=== PATIENT | female | born 1995 | race Caucasian/White ===

== ENCOUNTER 2016-08-06 17:28 | Emergency (ER) | payer BC, OTHER ==
[2016-08-06] MEDS ORDERED: METOCLOPRAMIDE 5 MG/ML 2 ML VIAL IVP STA (18:36)
[2016-08-06] MEDS ORDERED: ACETAMINOPHEN IV (For NPO) 1,000 MG in SALINE 100 100ML.BAG IVPB STA (18:36)
[2016-08-06] MEDS ORDERED: SODIUM CHLORIDE 0.9% 1,000 ML IV STA (18:36)
[2016-08-06 18:44] VITALS: RESP 18
--- NOTE | 2016-08-06 18:44 | ED ---
General Adult HPI - General Chief complaint: Vaginal Bleeding Stated complaint: AND CRAMPING Time Seen by Provider: 08/06/16 18:30 Source: patient, RN notes reviewed Mode of arrival: ambulatory Limitations: no limitations - History of Present Illness Initial comments: Patient is a G3, P2, 20-year-old female who presents emergency room today with chief complaint of vaginal bleeding that began yesterday. Doesn't some spotting. Admits some increased lower abdominal cramping this morning. Describes it as sharp pain located in the right side. She admits that last pressure cycle was 05/24/2016. Patient states she did call her OB Dr. Vu and was recommended to come here to the emergency room for evaluation. Admits to nausea. Patient denies any other complaints or associated symptoms. Patient denies any recent fever, chills, shortness of breath, chest pain, numbness or tingling, dysuria or hematuria, constipation or diarrhea, headaches or visual changes, or any other complaints. - Related Data Previous Rx's Medication Instructions Recorded Cephalexin [Keflex] 500 mg PO Q12HR 10 Days 08/06/16 Allergies Allergy/AdvReac Type Severity Reaction Status Date / Time amoxicillin Allergy Unknown Verified 08/06/16 19:04 Penicillins Allergy Swelling Verified 08/06/16 19:04 Review of Systems ROS Statement: Those systems with pertinent positive or pertinent negative responses have been documented in the HPI. ROS Other: All systems not noted in ROS Statement are negative. Past Medical History Past Medical History: No Reported History History of Any Multi-Drug Resistant Organisms: None Reported Past Surgical History: No Surgical Hx Reported Past Psychological History: No Psychological Hx Reported Smoking Status: Never smoker Past Alcohol Use History: None Reported Past Drug Use History: None Reported General Exam - General Exam Comments Initial Comments: General: The patient is awake and alert, in no distress, and does not appear acutely ill. Eye: Pupils are equal, round and reactive to light, extra-ocular movements are intact. No nystagmus. There is normal conjunctiva bilaterally. No signs of icterus. Ears, nose, mouth and throat: There are moist mucous membranes and no oral lesions. Neck: The neck is supple, there is no tenderness or JVD. Cardiovascular: There is a regular rate and rhythm. No murmur, rub or gallop is appreciated. Respiratory: Lungs are clear to auscultation, respirations are non-labored, breath sounds are equal. No wheezes, stridor, rales, or rhonchi. Gastrointestinal: No fevers then. Normal bowel sounds. Abdomen soft on palpation. Patient does have mild tenderness both left and right lower quadrant. No rebound tenderness. Musculoskeletal: Normal ROM, no tenderness. Strength 5/5. Sensation intact. Pulses equal bilaterally 2+. Neurological: A&O x 3. CN II-XII intact, There are no obvious motor or sensory deficits. Coordination appears grossly intact. Speech is normal. Skin: Skin is warm and dry and no rashes or lesions are noted. Psychiatric: Cooperative, appropriate mood & affect, normal judgment. Limitations: no limitations Course Vital Signs 08/06/16 08/06/16 17:37 18:42 Temperature 98.4 F 97.6 F Pulse Rate 94 83 Respiratory 17 18 Rate Blood Pressure 114/59 119/56 O2 Sat by Pulse 100 99 Oximetry Medical Decision Making - Medical Decision Making Case discussed in detail with attending physician Dr. Kemp. Patient reexamined at this time shows no signs of distress. Patient's labs are been reviewed blood work unremarkable. Patient's urinalysis does show evidence for urinary tract infection with positive nitrate and a large amount of white cells. Patient will be started on antibiotics. Does admit to ALLERGIES penicillin. States swelling. Patient will be given dose of Rocephin here in the emergency room. Patient be discharged home on antibiotics. Rh+. Advised close follow-up with [facility] over the next 2 days. Advised return here to emergency room if any symptoms increase worsen or for any other concerns. - Lab Data Result diagrams: 08/06/16 18:51 08/06/16 18:51 Lab Results 08/06/16 08/06/16 08/06/16 Range/Units 18:51 18:51 18:51 WBC 9.6 (3.8-10.6) k/uL RBC 4.25 (3.80-5.40) m/uL Hgb 13.1 (11.4-16.0) gm/dL Hct 37.9 (34.0-46.0) % MCV 89.2 (80.0-100.0) fL MCH 30.8 (25.0-35.0) pg MCHC 34.5 (31.0-37.0) g/dL RDW 12.9 (11.5-15.5) % Plt Count 194 (150-450) k/uL Neutrophils % 73 % Lymphocytes % 20 % Monocytes % 4 % Eosinophils % 2 % Basophils % 0 % Neutrophils # 7.0 (1.3-7.7) k/uL Lymphocytes # 1.9 (1.0-4.8) k/uL Monocytes # 0.4 (0-1.0) k/uL Eosinophils # 0.2 (0-0.7) k/uL Basophils # 0.0 (0-0.2) k/uL Sodium 136 L (137-145) mmol/L Potassium 3.8 (3.5-5.1) mmol/L Chloride 102 (98-107) mmol/L Carbon Dioxide 20 L (22-30) mmol/L Anion Gap 14 mmol/L BUN 10 (7-17) mg/dL Creatinine 0.53 (0.52-1.04) mg/dL Est GFR (MDRD) Af Amer >60 (>60 ml/min/1.73 sqM) Est GFR (MDRD) Non-Af >60 (>60 ml/min/1.73 sqM) Glucose 86 (74-99) mg/dL Calcium 9.2 (8.4-10.2) mg/dL Total Bilirubin 0.8 (0.2-1.3) mg/dL AST 16 (14-36) U/L ALT 29 (9-52) U/L Alkaline Phosphatase 64 (38-126) U/L Total Protein 7.4 (6.3-8.2) g/dL Albumin 4.2 (3.5-5.0) g/dL Urine Color Urine Appearance (Clear) Urine pH (5.0-8.0) Ur Specific Henderson (1.001-1.035) Urine Protein (Negative) Urine Glucose (UA) (Negative) Urine Ketones (Negative) Urine Blood (Negative) Urine Nitrate (Negative) Urine Bilirubin (Negative) Urine Urobilinogen (<2.0) mg/dL Ur Leukocyte Esterase (Negative) Urine RBC (0-5) /hpf Urine WBC (0-5) /hpf Urine WBC Clumps (None) /hpf Ur Squamous Epith Cells (0-4) /hpf Urine Bacteria (None) /hpf Urine Mucus (None) /hpf Urine Yeast (Budding) (None) /hpf Blood Type A Positive Blood Type Recheck No 08/06/16 Range/Units 18:51 WBC (3.8-10.6) k/uL RBC (3.80-5.40) m/uL Hgb (11.4-16.0) gm/dL Hct (34.0-46.0) % MCV (80.0-100.0) fL MCH (25.0-35.0) pg MCHC (31.0-37.0) g/dL RDW (11.5-15.5) % Plt Count (150-450) k/uL Neutrophils % % Lymphocytes % % Monocytes % % Eosinophils % % Basophils % % Neutrophils # (1.3-7.7) k/uL Lymphocytes # (1.0-4.8) k/uL Monocytes # (0-1.0) k/uL Eosinophils # (0-0.7) k/uL Basophils # (0-0.2) k/uL Sodium (137-145) mmol/L Potassium (3.5-5.1) mmol/L Chloride (98-107) mmol/L Carbon Dioxide (22-30) mmol/L Anion Gap mmol/L BUN (7-17) mg/dL Creatinine (0.52-1.04) mg/dL Est GFR (MDRD) Af Amer (>60 ml/min/1.73 sqM) Est GFR (MDRD) Non-Af (>60 ml/min/1.73 sqM) Glucose (74-99) mg/dL Calcium (8.4-10.2) mg/dL Total Bilirubin (0.2-1.3) mg/dL AST (14-36) U/L ALT (9-52) U/L Alkaline Phosphatase (38-126) U/L Total Protein (6.3-8.2) g/dL Albumin (3.5-5.0) g/dL Urine Color Yellow Urine Appearance Cloudy H (Clear) Urine pH 6.5 (5.0-8.0) Ur Specific Henderson 1.016 (1.001-1.035) Urine Protein 2+ H (Negative) Urine Glucose (UA) Negative (Negative) Urine Ketones Negative (Negative) Urine Blood Moderate H (Negative) Urine Nitrate Positive H (Negative) Urine Bilirubin Negative (Negative) Urine Urobilinogen <2.0 (<2.0) mg/dL Ur Leukocyte Esterase Large H (Negative) Urine RBC 15 H (0-5) /hpf Urine WBC >182 H (0-5) /hpf Urine WBC Clumps Many H (None) /hpf Ur Squamous Epith Cells 5 H (0-4) /hpf Urine Bacteria Many H (None) /hpf Urine Mucus Few H (None) /hpf Urine Yeast (Budding) Occasional H (None) /hpf Blood Type Blood Type Recheck Disposition Clinical Impression: UTI (urinary tract infection), Bleeding in early Disposition: HOME SELF-CARE Condition: Good Instructions: Urinary Tract Infection in Women (ED) Additional Instructions: Please follow-up the [facility] over the next 2 days. Please use antibiotic as prescribed. Please return to emergency room symptoms increase or worsen or for any other concerns Prescriptions: Cephalexin [Keflex] 500 mg PO Q12HR 10 Days Referrals: None,Stated [Primary Care Provider] - 1-2 days Dinorah Vu MD [STAFF PHYSICIAN] - 1-2 days Time of Disposition: 19:46
[2016-08-06 19:08] LABS: Basophils % (A) 0 %; CH 31.6; CHCM 35.6; Eosinophils # (A) 0.2 k/uL (0-0.7); Eosinophils % (A) 2 %; HCT 37.9 % (34.0-46.0); HDW 2.66; HGB 13.1 gm/dL (11.4-16.0); Luc # (Auto) 0.12; Luc % (Auto) 1; Lymphocytes # (A) 1.9 k/uL (1.0-4.8); Lymphocytes % (A) 20 %; MCH 30.8 pg (25.0-35.0); MCHC 34.5 g/dL (31.0-37.0); MCV 89.2 fL (80.0-100.0); Mean Platelet Volume 6.9; Monocytes # (A) 0.4 k/uL (0-1.0); Monocytes % (A) 4 %; Neutrophils % (A) 73 %; RBC 4.25 m/uL (3.80-5.40); RDW 12.9 % (11.5-15.5); WBC 9.6 k/uL (3.8-10.6); WBC (Perox) 9.67
[2016-08-06 19:17] LABS: Appearance,Urine Cloudy (Clear); Bacteria,Urine Many /hpf; Bilirubin,Urine Negative (Negative); Glucose,Urine (UA) Negative (Negative); Ketones,Urine Negative (Negative); Leukocyte Esterase,Urine Large (Negative); Mucus,Urine Few /hpf; Nitrite,Urine Positive (Negative); PH, Urine 6.5 (5.0-8.0); Particle Count 84865; Protein,Urine 2+ (Negative); RBC,Urine 15 /hpf (0-5); Specific Gravity,Urine 1.016 (1.001-1.035); Squamous Epithelial Cell,Urine 5 /hpf (0-4); UA Billing (MACRO vs. MICRO) MICRO; Urobilinogen,Urine <2.0 mg/dL (<2.0); WBC,Urine >182 /hpf (0-5)
[2016-08-06 19:18] LABS: ALT 29 U/L (9-52); AST 16 U/L (14-36); Alkaline Phosphatase 64 U/L (38-126); Anion Gap 14 mmol/L; Blood Urea Nitrogen 10 mg/dL (7-17); Calcium 9.2 mg/dL (8.4-10.2); Carbon Dioxide 20 mmol/L (22-30); Chloride 102 mmol/L (98-107); Glucose 86 mg/dL (74-99); Non-African American GFR(MDRD) >60 (>60 ml/min/1.73 sqM); Potassium 3.8 mmol/L (3.5-5.1); Sodium 136 mmol/L (137-145); Total Bilirubin 0.8 mg/dL (0.2-1.3); Total Protein 7.4 g/dL (6.3-8.2)
--- NOTE | 2016-08-06 19:35 | US ---
EXAMINATION TYPE: US OB <=14 wks transvag DATE OF EXAM: 08/06/2016 7:22 PM COMPARISON: No previous CLINICAL HISTORY: Pain. Cramping x 2 days, spotting x 2 days EXAM PERFORMED: Transabdominal (TA) EXAM MEASUREMENTS: GESTATIONAL AGE / DATING Physician Established: Not established yet Dates by LMP: (10 weeks/4 days) EDC: 02/28/2017 Dates by First Scan: No previous Dates by Current Scan for: (11 weeks/3 days) EDC: 02/22/2017 MATERNAL ANATOMY Uterus: 11.9 x 9.2 x 10.5cm Right Ovary: 3.1 x 2.0 x 2.2cm Left Ovary: 2.9 x 1.6 x 1.6cm Post CDS / Adnexa: 1.1 x 1.0 x 1.3cm hypoechoic cystic area within right adnexa adjacent to right ove ry - ? ovarian cyst vs. other etiology Presence of free fluid: no Presence of corpus luteal cyst: yes - 1.8 x 1.4 x 1.5cm - left ovary Presence of subchorionic bleed: no GESTATION / SURVEY CRL: 4.6cm (11 weeks/3 days) Yolk Sac (normal less than 6mm): 4.9mm Heart Rate: 171 bpm Rhythm: Normal IUP: Viable IUP Nuchal Translucency 10-14wks (normal less than 3mm): 1.3mm Date of LMP: 05/24/16 Beta HcG (if available): Not available at time of exam TECHNOLOGIST IMPRESSION: Viable single IUP measuring 11 weeks 3 days with a heart rate of 171bpm and an estimated delivery date of 02/22/2017, 1.8cm corpus luteum - left ovary, right adnexa: 1.3cm hypo echoic cystic area adjacent to right ovary IMPRESSION: The ultrasound gestational age is 11 weeks 3 days. There is no sign of a complicating process.
[2016-08-06] MEDS ORDERED: cefTRIAXone 2,000 MG in SODIUM CHLORIDE 0.9% 100 ML IVPB STA (19:45)
[2016-08-06 20:02] LABS: HCG,Quantitative Serum 93496.2 mIU/mL
[2016-08-06 21:31] VITALS: BP 101/59; PULSE 84; TEMP 97.7
== END 2016-08-06 21:31 | disposition home or self-care (01) ==
LOC: EC 17:28
DX: O23.41 Unspecified infection of urinary tract in pregnancy, first trimester (principal); O46.91 Antepartum hemorrhage, unspecified, first trimester; Z88.0 Allergy status to penicillin; Z3A.11 11 weeks gestation of pregnancy
CPT/HCPCS: 36415; 86900; 86901; 80053; 85025; 81001; 84702; 87086; 87077; 87186; 76813; 76801; 99284; 96365; 96375 ×2; J2765; J0696; J0131

== ENCOUNTER 2016-12-06 13:58 | Outpatient (CLI) | payer BC ==
[2016-12-06 14:10] VITALS: BP 103/56; PULSE 88; RESP 16; TEMP 96.9
== END 2016-12-06 15:05 | disposition home or self-care (01) ==
LOC: FBPOP 13:58
PROVIDERS: ATTEND Obstetrics & Gynecology
DX: O26.893 Other specified pregnancy related conditions, third trimester (principal); Z3A.28 28 weeks gestation of pregnancy
CPT/HCPCS: 59025; 99213

== ENCOUNTER 2017-02-09 10:53 | Outpatient (CLI) | payer BC ==
[2017-02-09 11:34] VITALS: BP 110/60; PULSE 94; RESP 16; TEMP 98.1
[2017-02-09 12:08] LABS: Appearance,Urine Cloudy (Clear); Bilirubin,Urine Negative (Negative); Glucose,Urine (UA) Negative (Negative); Ketones,Urine Trace (Negative); Leukocyte Esterase,Urine Large (Negative); Mucus,Urine Moderate /hpf; Nitrite,Urine Negative (Negative); PH, Urine 6.5 (5.0-8.0); Particle Count 7727; Protein,Urine Trace (Negative); RBC,Urine 2 /hpf (0-5); Specific Gravity,Urine 1.019 (1.001-1.035); Squamous Epithelial Cell,Urine 2 /hpf (0-4); UA Billing (MACRO vs. MICRO) MICRO; WBC,Urine 12 /hpf (0-5)
--- NOTE | 2017-04-17 10:51 | P.MSEPDOC ---
Presenting Problems - Arrival Data Date of Arrival on Unit: 02/09/17 Time of Arrival on Unit: 10:56 Mode of Transport: Ambulatory - Complaint OB-Reason for Admission/Chief Complaint: Possible Onset of Labor, Rule Out SROM Medical History - Information : 3 Para: 2 Term: 2 : 0 Abortions: Spontaneous or Elective: 0 Number of Living Children: 2 - Gestational Age Gestational Age by CAMILA (wks/days): 38 Weeks and 1 Days Review of Systems - Review of Systems Constitutional: No problems Breast: No problems ENT: No problems Cardiovascular: No problems Respiratory: No problems Gastrointestinal: No problems Genitourinary: No problems, Urgency Musculoskeletal: No problems Neurological: No problems Skin: No problems Vital Signs - Temperature Temperature: 98.1 F Temperature Source: Oral - Pulse Right Pulse Rate: 94 Pulse Assessment Method: Automatic Cuff - Respirations Respiratory Rate: 16 Oxygen Delivery Method: Room Air O2 Sat by Pulse Oximetry: 98 - Blood Pressure Right Arm Blood Pressure: 110/60 Blood Pressure Mean: 76 Blood Pressure Source: Automatic Cuff Medical Screen Scoring (Pre) - Cervical Exam Dilation: 1-3 cm = 1 Membranes: Intact - Uterine Contractions Frequency: > 5 minutes apart = 1 Duration: > 40 seconds = 2 Intensity: N/A - Assessment Baseline FHR: 120 Heart Rate - NICHD Category: Category I (Normal) = 0 - Total Score Total Score (Pre): 4 - Level of Risk Level of Risk: Low (0-5) Physician Notification (Post) - Physician Notified Physician Notified Date: 02/09/17 Physician Notified Time: 12:54 Physician/Practitioner Notified:: Karthik Spoke With: Karthik New Order Received: Yes - Notification Comment Comment: Prescription called in to [facility] for Macrobid, follow up at next scheduled appt on 02/17 Disposition - Disposition OB Disposition: Discharge to home, Written follow up instructions reviewed Discharge Date: 02/09/17 Discharge Time: 12:56 I agree with the RN Medical Screening Exam: Yes Risk & Benefit of care provided described in d/c instruction: Yes Diagnosis: ONSET LABOR 37-39 WEEKS, W DEL BY (PLANNED) SECTION
== END 2017-02-09 12:56 | disposition home or self-care (01) ==
LOC: FBPOP 10:53
PROVIDERS: ATTEND Obstetrics & Gynecology
DX: O75.82 Onset (spontaneous) of labor after 37 completed weeks of gestation but before 39 completed weeks gestation, with delivery by (planned) cesarean section (principal); Z3A.38 38 weeks gestation of pregnancy
CPT/HCPCS: 59025; 81001; 84112; 99213

== ENCOUNTER 2017-02-11 03:15 | Outpatient (CLI) | payer BC ==
[2017-02-11 03:29] VITALS: BP 117/61; PULSE 93; RESP 16; TEMP 96.6
--- NOTE | 2017-04-16 12:14 | P.MSEPDOC ---
Presenting Problems - Arrival Data Date of Arrival on Unit: 02/11/17 Time of Arrival on Unit: 03:20 Mode of Transport: Wheelchair - Complaint OB-Reason for Admission/Chief Complaint: Possible Onset of Labor Comment: Contractions that started around 0100 ranging from 3-4 minutes Medical History - Information : 3 Para: 2 Term: 2 : 0 Abortions: Spontaneous or Elective: 0 Number of Living Children: 2 - Gestational Age Gestational Age by CAMILA (wks/days): 38 Weeks and 3 Days Review of Systems - Review of Systems Constitutional: No problems Breast: No problems ENT: No problems Cardiovascular: No problems Respiratory: No problems Gastrointestinal: No problems Genitourinary: No problems Musculoskeletal: No problems Neurological: No problems Skin: No problems Vital Signs - Temperature Temperature: 96.6 F Temperature Source: Temporal Artery Scan - Pulse Pulse Oximetery Pulse Rate: 93 Pulse Assessment Method: Pulse Oximetry - Respirations Respiratory Rate: 16 Oxygen Delivery Method: Room Air - Blood Pressure Sitting Blood Pressure: 117/61 Blood Pressure Mean: 79 Blood Pressure Source: Automatic Cuff Medical Screen Scoring (Pre) - Cervical Exam Dilation: 1-3 cm = 1 Membranes: Intact - Uterine Contractions Frequency: N/A Duration: > 40 seconds = 2 Intensity: N/A - Maternal Vital Signs Maternal Temperature: N/A Maternal Blood Pressure: N/A Signs of Preeclampsia: N/A Maternal Respirations: N/A - Maternal Trauma Maternal Trauma: N/A - Assessment Baseline FHR: 145 Heart Rate - NICHD Category: Category I (Normal) = 0 NST: Reactive Position: N/A Station: N/A - Total Score Total Score (Pre): 3 - Level of Risk Level of Risk: Low (0-5) Disposition - Disposition Discharge Date: 02/11/17 Discharge Time: 04:39 I agree with the RN Medical Screening Exam: Yes Risk & Benefit of care provided described in d/c instruction: Yes Diagnosis: FALSE LABOR AT OR AFTER 37 COMPLETED WEEKS OF GESTATION
== END 2017-02-11 04:39 | disposition home or self-care (01) ==
LOC: FBPOP 03:15
PROVIDERS: ATTEND Obstetrics & Gynecology Obstetrics
DX: O47.1 False labor at or after 37 completed weeks of gestation (principal); Z3A.38 38 weeks gestation of pregnancy
CPT/HCPCS: 59025; 99213

== ENCOUNTER 2017-02-15 05:57 | Inpatient (IN) | payer BC ==
[2017-02-15] MEDS ORDERED: OXYTOCIN 10 UNIT/ML 1 ML VIAL IM PRN (06:16)
[2017-02-15] MEDS ORDERED: METHYLERGONOVINE 0.2 MG/ML 1 ML AMP IM PRN (06:16)
[2017-02-15] MEDS ORDERED: TERBUTALINE 1 MG/ML VIAL SQ PRN (06:16)
[2017-02-15] MEDS ORDERED: LIDOCAINE 1% (PF) 10 MG/ML (30 ML SDV) SQ PRN (06:16)
[2017-02-15] MEDS ORDERED: CARBOPROST TROMETHAMINE 250 MCG/ML 1 ML AMP IM PRN (06:16)
[2017-02-15 06:27] LABS: Basophils % (A) 0 %; CH 30.2; CHCM 34.2; Eosinophils # (A) 0.1 k/uL (0-0.7); Eosinophils % (A) 1 %; HDW 3.33; HGB 11.2 gm/dL (11.4-16.0); Luc # (Auto) 0.18; Luc % (Auto) 2; Lymphocytes # (A) 1.6 k/uL (1.0-4.8); Lymphocytes % (A) 20 %; MCH 30.2 pg (25.0-35.0); MCHC 33.9 g/dL (31.0-37.0); MCV 88.8 fL (80.0-100.0); Mean Platelet Volume 7.6; Monocytes # (A) 0.5 k/uL (0-1.0); Monocytes % (A) 6 %; Neutrophils # (A) 5.5 k/uL (1.3-7.7); Neutrophils % (A) 71 %; RBC 3.71 m/uL (3.80-5.40); RDW 13.5 % (11.5-15.5); WBC 7.8 k/uL (3.8-10.6); WBC (Perox) 8.31
[2017-02-15] MEDS ORDERED: OXYTOCIN 20 UNITS/1000 ML NS 1,000 ML IV SCH (06:30)
[2017-02-15] MEDS: LACTATED RINGERS 1,000 ML IV SCH ×2 (06:53→21:48)
[2017-02-15 07:23] VITALS: BMI 26.0
--- NOTE | 2017-02-15 07:25 | P.HPOB ---
History of Present Illness H&P Date: 02/15/17 This is a 21-year-old white female 3 para 06/20/2001 EDC 02/22/2017 at 39 weeks gestation. Patient presents today for induction for increasing maternal discomfort and favorable Navarro score. Fetus has been active throughout the . She has been having irregular but strong uterine contractions over the past several weeks. She denies fluid leakage or vaginal bleeding. Past medical history is significant for childhood asthma, on no meds currently. Past surgical history negative. Current medications reed vitamins daily. ALLERGIES include penicillin to which reports swelling. Family history significant for hypertension. Social history patient is single, she is employed, she denies tobacco alcohol or drug use. history blood type A+, rubella status immune. VDRL testing, hepatitis B surface antigen, HIV testing, urine culture, group B strep cultures all negative. One-hour Glucola within normal limits. On exam this is a pleasant young female, 5 foot 3 inches, 147 pounds, vital signs are stable and she is afebrile. The general physical exam is within normal limits. The extremities reveal no edema. The cervix is 3 cm dilated, 60 % effaced, -2 station, vertex presentation, soft and anterior. heart rate is consistent with reactive NST. Artificial amniorrhexis reveals clear fluid. There are irregular uterine contractions noted. Impression: 39 week intrauterine , here for induction of labor for increasing maternal discomfort. All signs at this point reassuring. Plan: Close maternal and surveillance. Oxytocin per hospital protocol. Analgesic options reviewed with the patient. Anticipate normal spontaneous vaginal delivery. Review of Systems Negative except as in HPI Past Medical History Past Medical History: No Reported History Additional Past Medical History / Comment(s): Childhood asthma History of Any Multi-Drug Resistant Organisms: None Reported Past Surgical History: No Surgical Hx Reported Smoking Status: Never smoker Medications and Allergies Home Medications Medication Instructions Recorded Confirmed Type No Known Home Medications [No 02/09/17 02/11/17 History Known Home Medications] Allergies Allergy/AdvReac Type Severity Reaction Status Date / Time amoxicillin Allergy Swelling Verified 02/11/17 03:22 Penicillins Allergy Swelling Verified 02/11/17 03:22 Exam - Vital Signs Vital signs: Intake and Output 02/14/17 02/15/17 02/15/17 22:59 06:59 14:59 Other: Weight 66.678 kg The dictation under HPI, please Results Result Diagrams: 02/15/17 06:20 Abnormal Lab Results - Last 24 Hours (Table) 02/15/17 Range/Units 06:20 RBC 3.71 L (3.80-5.40) m/uL Hgb 11.2 L (11.4-16.0) gm/dL Hct 33.0 L (34.0-46.0) % Assessment and Plan Plan: Close maternal and surveillance. Oxytocin per hospital protocol. Anticipate normal spontaneous vaginal delivery. Time with Patient: Less than 30
[2017-02-15] MEDS ORDERED: SODIUM CHLORIDE 0.9% 100 ML BAG ONE (09:57)
[2017-02-15] MEDS ORDERED: fentaNYL (PF) 50 MCG/ML 5 ML AMP ONE (09:57)
[2017-02-15] MEDS ORDERED: BUPIVACAINE (PF) 0.25% 30 ML VIAL ONE (09:57)
[2017-02-15] MEDS ORDERED: BUPIVACAINE (PF) 0.25% 25 ML, fentaNYL (PF) 200 MCG in SODIUM CHLORIDE 0.9% 71 ML EPIDURAL ONE (10:32)
[2017-02-15] MEDS ORDERED: SIMETHICONE 80 MG CHEWABLE PO PRN (12:20)
[2017-02-15] MEDS ORDERED: BENZOCAINE/MENTHOL SPRAY 1 GM/SPRAY AEROSOL TOPICAL PRN (12:20)
[2017-02-15] MEDS ORDERED: HYDROCORTISONE 2.5% RECTAL CREAM 30 GM TUBE RECTAL PRN (12:20)
[2017-02-15] MEDS ORDERED: Acetaminophen-Codeine 300-30mg TAB PO PRN (12:20)
[2017-02-15] MEDS ORDERED: LANOLIN CREAM 5 GM TUBE TOPICAL PRN (12:20)
[2017-02-15] MEDS ORDERED: diphenhydrAMINE ELIXIR 25 MG/10 ML CUP PO PRN (12:20)
[2017-02-15] MEDS ORDERED: diphenhydrAMINE 50 MG CAP PO PRN (12:20)
[2017-02-15] MEDS ORDERED: diphenhydrAMINE 50 MG/ML 1 ML VIAL IVP PRN ×2 (12:20)
[2017-02-15] MEDS ORDERED: diphenhydrAMINE 25 MG CAP PO PRN (12:20)
[2017-02-15] MEDS ORDERED: ACETAMINOPHEN TAB 325 MG TAB PO PRN (12:20)
[2017-02-15] MEDS ORDERED: WITCH HAZEL 1 EACH MED..PAD TOPICAL PRN (12:20)
[2017-02-15] MEDS ORDERED: ZOLPIDEM 5 MG TAB PO PRN (12:20)
--- NOTE | 2017-02-15 12:20 | P.PROBDLV ---
Vaginal Delivery Note - . Vaginal Delivery Note: This is a 21-year-old white female 3 para [id number] EDC 02/22/2017 at 39 weeks gestation. Patient presented for induction this morning with favorable cervix with increasing maternal discomfort. was essentially unremarkable, group B strep cultures negative, blood type A+, rubella status immune. Please see my dictated history and physical for details. Artificial amniorrhexis revealed clear fluid. Oxytocin was started and titrated per hospital protocol. heart rate was reassuring and reactive throughout the first and second stages of labor. Epidural was requested, and this was placed without difficulty per the anesthesia staff. Patient progressed well through labor and became completely dilated at 1154 hours. Perineal body was prepped and draped in usual sterile fashion. ' s head delivered occiput anterior and the restituted accordingly. There was no nuchal cord noted. The left or anterior shoulder was delivered easily from underneath the pubic symphysis and the oropharynx, nasopharynx, and external nares were bulb suctioned on the perineal body. Patient was officially delivered of a liveborn male at 12:00. Umbilical cord was doubly clamped and ligated, he was handed to waiting nurses for evaluation where scores of 9 and 9 at one and 5 minutes respectively were given. Infant weighed 7 lbs. 0 oz. or 3185 g. The placenta delivered spontaneously, it was inspected and noted to be intact with trivascular cord at 1209 hrs. At this time the perineal body was redraped. Inspection of the cervix, vagina, perineum, periurethral, and perirectal areas revealed no lacerations and no defects. Uterus is firm and in the midline, symmetric and 18 week size upon completion of delivery. All sponge needle and enhancement counts are correct at the end of the procedure. Patient is requesting circumcision for her infant son.
[2017-02-15] MEDS ORDERED: SENNOSIDES-DOCUSATE SODIUM 1 EACH TAB PO SCH (20:00)
[2017-02-16] MEDS: IBUPROFEN 600 MG TAB PO PRN ×2 (04:50→09:30)
--- NOTE | 2017-02-16 07:38 | P.DS ---
Providers Date of admission: 02/15/17 05:57 Expected date of discharge: 02/16/17 Attending physician: Dinorah Vu Primary care physician: Stated None Hospital Course: This is a 21-year-old white female 3 para 2002 EDC 02/22/2017 at 39 weeks gestation. Patient presented for induction for increasing maternal discomfort and favorable multiparous cervix. was essentially unremarkable, blood type A+, rubella status immune, group B strep cultures negative. Please see my dictated history and physical for details. Patient was admitted, artificial amniorrhexis revealed clear fluid, oxytocin was started and titrated per hospital protocol. Epidural was placed per her request. She went on to deliver a liveborn male with scores of 9 and 9 at one and 5 minutes respectively. Infant weighed 3185 g or 7 lbs. 0 oz. There were no perineal lacerations noted. Please see dictated delivery note for details. Today the patient is doing well. She is voiding, and dilating and passing flatus without difficulty. Vital signs are stable and she is afebrile. Fundus is firm and in the midline, symmetric and 18 week size. Extremities are negative for edema. Breasts are not engorged. Circumcision is to be performed on her . She is being discharged home today in very good condition. She will follow-up in the office with me in 6 weeks. I have reminded her no intercourse, tampons or douching. She will use [id number] Advil products as needed for pain. She will call with any fevers shakes or chills, foul smelling or copious lochia , with the passage of large blood clots, with any pain not alleviated by over- the-counter products, or indeed with any concerns. We have talked about methods of contraception and we will discuss this further in the office in 6 weeks. Patient Condition at Discharge: Good Plan - Discharge Summary New Discharge Prescriptions: No Action No Known Home Medications [No Known Home Medications] Discharge Medication List No Known Home Medications [No Known Home Medications] 02/09/17 [History] Follow up Appointment(s)/Referral(s): Dinorah Vu MD [STAFF PHYSICIAN] - 6 Weeks Discharge Disposition: HOME SELF-CARE
[2017-02-16 09:43] VITALS: BP 92/57; PULSE 79; RESP 16; TEMP 97.8
== END 2017-02-16 14:30 | disposition home or self-care (01) | DRG 775 ==
LOC: 4FBP 05:57
PROVIDERS: ADMIT Obstetrics & Gynecology; ATTEND Obstetrics & Gynecology
PROC: 10E0XZZ Delivery of Products of Conception, External Approach (ICD-10-PCS; principal; 2017-02-15)
PROC: 3E033VJ Introduction of Other Hormone into Peripheral Vein, Percutaneous Approach (ICD-10-PCS; 2017-02-15)
PROC: 10907ZC Drainage of Amniotic Fluid, Therapeutic from Products of Conception, Via Natural or Artificial Opening (ICD-10-PCS; 2017-02-15)
PROC: 00HU33Z Insertion of Infusion Device into Spinal Canal, Percutaneous Approach (ICD-10-PCS; 2017-02-15)
PROC: 3E0R3CZ (ICD-10-PCS; 2017-02-15)
DX: O80 Encounter for full-term uncomplicated delivery (principal); Z37.0 Single live birth; Z3A.39 39 weeks gestation of pregnancy; Z87.09 Personal history of other diseases of the respiratory system; Z88.0 Allergy status to penicillin
CPT/HCPCS: 85025; 88307

== ENCOUNTER 2019-05-05 15:43 | Emergency (ER) | payer BC, OTHER ==
[2019-05-05] MEDS ORDERED: DIPH,PERTUS(ACELL)TETVAC-LF 0.5 ML VIAL IM ONE (16:07)
[2019-05-05] MEDS ORDERED: LIDOCAINE 1% INJ 10MG/ML (20 ML MDV) SQ ONE (16:07)
--- NOTE | 2019-05-05 16:19 | ED ---
General Adult HPI - General Chief complaint: Wound/Laceration Stated complaint: finger lac Time Seen by Provider: 05/05/19 15:55 Source: patient, RN notes reviewed Mode of arrival: ambulatory Limitations: no limitations - History of Present Illness Initial comments: 23-year-old female presents to the emergency department for chief complaint of laceration to the right fourth digit. Patient states that she a toolbox door closed on her right fourth digit and she pulled her finger causing a laceration to the finger pad. Patient is not up-to-date on tetanus.Patient has no other complaints at this time including shortness of breath, chest pain, abdominal pain, nausea or vomiting, headache, or visual changes. - Related Data Home Medications Medication Instructions Recorded Confirmed No Known Home Medications 02/09/17 02/11/17 Allergies Allergy/AdvReac Type Severity Reaction Status Date / Time amoxicillin Allergy Swelling Verified 02/11/17 03:22 Penicillins Allergy Swelling Verified 02/11/17 03:22 Review of Systems ROS Statement: Those systems with pertinent positive or pertinent negative responses have been documented in the HPI. ROS Other: All systems not noted in ROS Statement are negative. Past Medical History Past Medical History: No Reported History Additional Past Medical History / Comment(s): Childhood asthma History of Any Multi-Drug Resistant Organisms: None Reported Past Surgical History: No Surgical Hx Reported Past Anesthesia/Blood Transfusion Reactions: No Reported Reaction Past Psychological History: No Psychological Hx Reported Smoking Status: Former smoker Past Alcohol Use History: None Reported Past Drug Use History: None Reported - Past Family History Father Family Medical History: Hypertension General Exam Limitations: no limitations General appearance: alert, in no apparent distress Head exam: Present: atraumatic, normocephalic, normal inspection Eye exam: Present: normal appearance, PERRL, EOMI. Absent: scleral icterus, conjunctival injection, periorbital swelling ENT exam: Present: normal exam, mucous membranes moist Neck exam: Present: normal inspection, full ROM. Absent: tenderness, meningis mus, lymphadenopathy Respiratory exam: Present: normal lung sounds bilaterally. Absent: respiratory distress, wheezes, rales, rhonchi, stridor Cardiovascular Exam: Present: regular rate, normal rhythm, normal heart sounds. Absent: systolic murmur, diastolic murmur, rubs, gallop, clicks Extremities exam: Present: full ROM (Full range motion of the right fourth digit), normal capillary refill (Capillary refill less than 2 seconds in the right fourth digit), other (Patient has a small 1 cm laceration noted to the finger pad of the right fourth digit. This is superficial in nature. No concern for underlying fracture or muscular/tendon injury.) Course Vital Signs 05/05/19 15:45 Temperature 98.1 F Pulse Rate 112 H Respiratory 18 Rate Blood Pressure 124/60 O2 Sat by Pulse 98 Oximetry Procedures - Laceration Laceration #1 Consent Obtained: verbal consent Indication: laceration Site: hand Size (cm): 1 Description: linear Depth: simple, single layer Anesthetic Used: lidocaine 1% Anesthesia Technique: local infiltration Amount (mls): 1 Pre-repair: wound explored, irrigated extensively (saline pressur eirrigation after soaking in sterile water) Type of Sutures: other (ethilon) Size of Sutures: 5-0 Number of Sutures: 3 Technique: simple, interrupted Patient Tolerated Procedure: well, no complications Medical Decision Making - Medical Decision Making She presents for superficial laceration. However as this is on the fingertip glue would not suffice as it would likely degrade. Therefore 3 sutures were applied after wound was thoroughly cleaned. I am not concerned for underlying fracture given mechanism of injury. Discussed return precautions including those for infection. Discussed return in 7-10 days for removal. Patient will return if she has any other worsening symptoms. Disposition Clinical Impression: Laceration Disposition: HOME SELF-CARE Condition: Good Instructions (If sedation given, give patient instructions): Laceration (ED), Care For Your Stitches (ED) Additional Instructions: Keep liam clean. Do not submerge in water for 24-48 hours. Monitor for signs infection such as spreading or streaking redness, drainage, or fever and return if these occur. Return in 7-10 days for suture removal. Otherwise follow-up with primary care in the next couple days for a recheck. Is patient prescribed a controlled substance at d/c from ED?: No Referrals: Mitra White MD [REFERRING] - 1-2 days Time of Disposition: 16:38
[2019-05-05 16:57] VITALS: BP 113/73; PULSE 96; RESP 19; TEMP 98.4
== END 2019-05-05 16:47 | disposition home or self-care (01) ==
LOC: EC 15:43
DX: S61.214A Laceration without foreign body of right ring finger without damage to nail, initial encounter (principal); Z87.891 Personal history of nicotine dependence; Z88.0 Allergy status to penicillin; Z23 Encounter for immunization; W23.0XXA Caught, crushed, jammed, or pinched between moving objects, initial encounter
CPT/HCPCS: 90715; 99282; 12001; 90471; J2001

== ENCOUNTER 2020-12-11 08:02 | Emergency (ER) | payer OTHER ==
[2020-12-11 08:07] VITALS: RESP 18; TEMP 97.8
[2020-12-11] MEDS ORDERED: METOCLOPRAMIDE 5 MG/ML 2 ML VIAL IVP STA (08:10)
[2020-12-11] MEDS ORDERED: SODIUM CHLORIDE 0.9% 2,000 ML IV STA (08:10)
--- NOTE | 2020-12-11 08:13 | ED ---
Nausea/Vomiting/Diarrhea HPI - General Chief complaint: Nausea/Vomiting/Diarrhea Stated complaint: Nausea & vomiting, 9 weeks Time Seen by Provider: 12/11/20 08:04 Source: patient, RN notes reviewed Mode of arrival: ambulatory Limitations: no limitations - History of Present Illness Initial comments: This a 25-year-old female presents emergency Department chief complaint of nausea vomiting. Patient is A0 currently 9 weeks with nausea vomiting. Patient states she's had increased nausea vomiting last several weeks. Patient first [facility] appointment was scheduled for today. Patient had no prior visits. Patient denies any dysuria hematuria she states her abdomen is sore from vomiting denies any vaginal bleeding or vaginal discharge. Patient denies any fevers or chills. Patient did have some nausea vomiting and her oth er pregnancies this seems recently worsened usual. - Related Data Previous Rx's Medication Instructions Recorded Cephalexin [Keflex] 500 mg PO Q8HR #21 cap 12/11/20 Ondansetron Odt [Zofran Odt] 4 mg PO Q8HR PRN #14 tab 12/11/20 Allergies Allergy/AdvReac Type Severity Reaction Status Date / Time amoxicillin Allergy Swelling Verified 12/11/20 09:07 Penicillins Allergy Swelling Verified 12/11/20 09:07 Review of Systems ROS Statement: Those systems with pertinent positive or pertinent negative responses have been documented in the HPI. ROS Other: All systems not noted in ROS Statement are negative. Past Medical History Past Medical History: No Reported History Additional Past Medical History / Comment(s): Childhood asthma History of Any Multi-Drug Resistant Organisms: None Reported Past Surgical History: No Surgical Hx Reported Past Anesthesia/Blood Transfusion Reactions: No Reported Reaction Past Psychological History: No Psychological Hx Reported Smoking Status: Never smoker Past Alcohol Use History: None Reported Past Drug Use History: None Reported - Past Family History Father Family Medical History: Hypertension General Exam Limitations: no limitations General appearance: alert, in no apparent distress Head exam: Present: atraumatic, normocephalic, normal inspection Respiratory exam: Present: normal lung sounds bilaterally. Absent: respiratory distress, wheezes, rales, rhonchi, stridor Cardiovascular Exam: Present: regular rate, normal rhythm, normal heart sounds. Absent: systolic murmur, diastolic murmur, rubs, gallop, clicks GI/Abdominal exam: Present: soft, normal bowel sounds. Absent: distended, tenderness, guarding, rebound, rigid Back exam: Absent: CVA tenderness (R), CVA tenderness (L) Neurological exam: Present: alert Skin exam: Present: warm, dry, intact, normal color. Absent: rash Course Vital Signs 12/11/20 08:04 Temperature 97.8 F Pulse Rate 99 Respiratory 18 Rate Blood Pressure 118/69 O2 Sat by Pulse 99 Oximetry Medical Decision Making - Medical Decision Making 25-year-old presented for nausea vomiting . Patient is found have urinary tract infection. Patient will hydrated, given antiemetics. Patient we discharged on antiemetics, antibiotics will follow-up with [employer] return parameters were discussed. - Lab Data Result diagrams: 12/11/20 08:14 12/11/20 08:14 Lab Results 12/11/20 12/11/20 12/11/20 Range/Units 08:14 08:14 08:14 WBC 8.1 (3.8-10.6) k/uL RBC 4.43 (3.80-5.40) m/uL Hgb 13.5 (11.4-16.0) gm/dL Hct 38.7 (34.0-46.0) % MCV 87.2 (80.0-100.0) fL MCH 30.5 (25.0-35.0) pg MCHC 35.0 (31.0-37.0) g/dL RDW 11.7 (11.5-15.5) % Plt Count 223 (150-450) k/uL MPV 7.2 Neutrophils % 71 % Lymphocytes % 21 % Monocytes % 5 % Eosinophils % 2 % Basophils % 1 % Neutrophils # 5.7 (1.3-7.7) k/uL Lymphocytes # 1.7 (1.0-4.8) k/uL Monocytes # 0.4 (0-1.0) k/uL Eosinophils # 0.1 (0-0.7) k/uL Basophils # 0.0 (0-0.2) k/uL Sodium 136 L (137-145) mmol/L Potassium 4.1 (3.5-5.1) mmol/L Chloride 106 (98-107) mmol/L Carbon Dioxide 22 (22-30) mmol/L Anion Gap 8 mmol/L BUN 10 (7-17) mg/dL Creatinine 0.41 L (0.52-1.04) mg/dL Est GFR (CKD-EPI)AfAm >90 (>60 ml/min/1.73 sqM) Est GFR (CKD-EPI)NonAf >90 (>60 ml/min/1.73 sqM) Glucose 108 H (74-99) mg/dL Calcium 9.5 (8.4-10.2) mg/dL Total Bilirubin 1.1 (0.2-1.3) mg/dL AST 21 (14-36) U/L ALT 15 (4-34) U/L Alkaline Phosphatase 74 (38-126) U/L Total Protein 7.2 (6.3-8.2) g/dL Albumin 4.2 (3.5-5.0) g/dL Urine Color Yellow Urine Appearance Cloudy H (Clear) Urine pH 6.0 (5.0-8.0) Ur Specific [place] 1.033 (1.001-1.035) Urine Protein Trace H (Negative) Urine Glucose (UA) Negative (Negative) Urine Ketones Negative (Negative) Urine Blood Negative (Negative) Urine Nitrite Negative (Negative) Urine Bilirubin Negative (Negative) Urine Urobilinogen 2.0 (<2.0) mg/dL Ur Leukocyte Esterase Moderate H (Negative) Urine RBC 1 (0-5) /hpf Urine WBC 22 H (0-5) /hpf Ur Squamous Epith Cells 1 (0-4) /hpf Urine Bacteria Occasional H (None) /hpf Urine Mucus Moderate H (None) /hpf Urine HCG, Qual (Not Detectd) 12/11/20 Range/Units 08:14 WBC (3.8-10.6) k/uL RBC (3.80-5.40) m/uL Hgb (11.4-16.0) gm/dL Hct (34.0-46.0) % MCV (80.0-100.0) fL MCH (25.0-35.0) pg MCHC (31.0-37.0) g/dL RDW (11.5-15.5) % Plt Count (150-450) k/uL MPV Neutrophils % % Lymphocytes % % Monocytes % % Eosinophils % % Basophils % % Neutrophils # (1.3-7.7) k/uL Lymphocytes # (1.0-4.8) k/uL Monocytes # (0-1.0) k/uL Eosinophils # (0-0.7) k/uL Basophils # (0-0.2) k/uL Sodium (137-145) mmol/L Potassium (3.5-5.1) mmol/L Chloride (98-107) mmol/L Carbon Dioxide (22-30) mmol/L Anion Gap mmol/L BUN (7-17) mg/dL Creatinine (0.52-1.04) mg/dL Est GFR (CKD-EPI)AfAm (>60 ml/min/1.73 sqM) Est GFR (CKD-EPI)NonAf (>60 ml/min/1.73 sqM) Glucose (74-99) mg/dL Calcium (8.4-10.2) mg/dL Total Bilirubin (0.2-1.3) mg/dL AST (14-36) U/L ALT (4-34) U/L Alkaline Phosphatase (38-126) U/L Total Protein (6.3-8.2) g/dL Albumin (3.5-5.0) g/dL Urine Color Urine Appearance (Clear) Urine pH (5.0-8.0) Ur Specific [place] (1.001-1.035) Urine Protein (Negative) Urine Glucose (UA) (Negative) Urine Ketones (Negative) Urine Blood (Negative) Urine Nitrite (Negative) Urine Bilirubin (Negative) Urine Urobilinogen (<2.0) mg/dL Ur Leukocyte Esterase (Negative) Urine RBC (0-5) /hpf Urine WBC (0-5) /hpf Ur Squamous Epith Cells (0-4) /hpf Urine Bacteria (None) /hpf Urine Mucus (None) /hpf Urine HCG, Qual Detected (Not Detectd) Disposition Clinical Impression: Nausea/vomiting in , UTI in Disposition: HOME SELF-CARE Condition: Stable Instructions (If sedation given, give patient instructions): Urinary Tract Infection in (ED), Nausea and Vomiting in (ED) Additional Instructions: Please return to the Emergency Department if symptoms worsen or any other concerns. Prescriptions: Cephalexin [Keflex] 500 mg PO Q8HR #21 cap Ondansetron Odt [Zofran Odt] 4 mg PO Q8HR PRN #14 tab PRN Reason: Nausea Is patient prescribed a controlled substance at d/c from ED?: No Referrals: Francisco Macias MD [Primary Care Provider] - 1-2 days Time of Disposition: 10:59
[2020-12-11 08:28] LABS: Basophils % (A) 1 %; Eosinophils # (A) 0.1 k/uL (0-0.7); Eosinophils % (A) 2 %; HCT 38.7 % (34.0-46.0); HGB 13.5 gm/dL (11.4-16.0); Lymphocytes # (A) 1.7 k/uL (1.0-4.8); Lymphocytes % (A) 21 %; MCH 30.5 pg (25.0-35.0); MCV 87.2 fL (80.0-100.0); Mean Platelet Volume 7.2; Monocytes # (A) 0.4 k/uL (0-1.0); Monocytes % (A) 5 %; Neutrophils # (A) 5.7 k/uL (1.3-7.7); Neutrophils % (A) 71 %; Platelet Count 223 k/uL (150-450); RBC 4.43 m/uL (3.80-5.40); RDW 11.7 % (11.5-15.5); WBC 8.1 k/uL (3.8-10.6)
[2020-12-11 08:31] LABS: Appearance,Urine Cloudy (Clear); Bacteria,Urine Occasional /hpf; Bilirubin,Urine Negative (Negative); Blood,Urine Negative (Negative); Color,Urine Yellow; Glucose,Urine (UA) Negative (Negative); Ketones,Urine Negative (Negative); Leukocyte Esterase,Urine Moderate (Negative); Mucus,Urine Moderate /hpf; Nitrite,Urine Negative (Negative); Protein,Urine Trace (Negative); RBC,Urine 1 /hpf (0-5); Specific Gravity,Urine 1.033 (1.001-1.035); Squamous Epithelial Cell,Urine 1 /hpf (0-4); WBC,Urine 22 /hpf (0-5)
[2020-12-11 08:44] LABS: ALT 15 U/L (4-34); AST 21 U/L (14-36); African American GFR (CKD) >90 (>60 ml/min/1.73 sqM); Albumin 4.2 g/dL (3.5-5.0); Alkaline Phosphatase 74 U/L (38-126); Anion Gap 8 mmol/L; Blood Urea Nitrogen 10 mg/dL (7-17); Calcium 9.5 mg/dL (8.4-10.2); Carbon Dioxide 22 mmol/L (22-30); Chloride 106 mmol/L (98-107); Glucose 108 mg/dL (74-99); Non-African American GFR(CKD) >90 (>60 ml/min/1.73 sqM); Potassium 4.1 mmol/L (3.5-5.1); Sodium 136 mmol/L (137-145); Total Bilirubin 1.1 mg/dL (0.2-1.3); Total Protein 7.2 g/dL (6.3-8.2)
[2020-12-11] MEDS ORDERED: ONDANSETRON 4 MG/2 ML VIAL IVP STA (10:20)
[2020-12-11 10:57] VITALS: BP 93/61; PULSE 71
== END 2020-12-11 11:28 | disposition home or self-care (01) ==
LOC: EC 08:02
DX: O23.41 Unspecified infection of urinary tract in pregnancy, first trimester (principal); Z3A.09 9 weeks gestation of pregnancy
CPT/HCPCS: 36415; 80053; 85025; 81001; 81025; 84702; 87086; 99284; 96375 ×2; 96365; 96361 ×2; J2765; J2405; J0696

== ENCOUNTER 2021-07-03 17:53 | Outpatient (CLI) | payer OTHER ==
[2021-07-03 19:22] VITALS: BP 129/67; PULSE 101; RESP 16; TEMP 98.1
--- NOTE | 2021-07-04 07:23 | P.MSEPDOC ---
Presenting Problems - Arrival Data Date of Arrival on Unit: 07/03/21 Time of Arrival on Unit: 19:14 Mode of Transport: Ambulatory - Complaint OB-Reason for Admission/Chief Complaint: Possible Onset of Labor Comment: Contractions that started this morning and got worse through the day Medical History - Information : 4 Para: 3 Term: 3 : 0 Abortions: Spontaneous or Elective: 0 Number of Living Children: 3 - Gestational Age Gestational Age by CAMILA (wks/days): 38 Weeks and 1 Days Review of Systems - Review of Systems Constitutional: No problems Breast: No problems ENT: No problems Cardiovascular: No problems Respiratory: No problems Gastrointestinal: No problems Genitourinary: No problems Musculoskeletal: No problems Neurological: No problems Skin: No problems Vital Signs - Temperature Temperature: 98.1 F Temperature Source: Oral - Pulse Right Brachial Pulse Rate: 101 Pulse Assessment Method: Automatic Cuff - Respirations Respiratory Rate: 16 Oxygen Delivery Method: Room Air - Blood Pressure Right Arm Blood Pressure: 129/67 Blood Pressure Mean: 87 Blood Pressure Source: Automatic Cuff Medical Screen Scoring - Cervical Exam Dilation (cm): 2 Effacement (%): 60 Station: -3 Membranes: Intact - Uterine Contractions Frequency From (mins): 2 Frequency To (mins): 5 Duration From (seconds): 50 Duration To (seconds): 60 Intensity: Moderate Resting: Soft to palpation - Assessment - Baby A Baseline FHR: 150 Heart Rate - NICHD Category: Category I (Normal) Physician Notification - Physician Notified Physician Notified Date: 07/03/21 Physician Notified Time: 19:11 Physician: Ki Forte New Order Received: Yes - Notification Comment Comment: Blayne Lowry reported pt s/sx, no cervical change after 1 hour. Orders to d/c home, follow up TUE with Dr. Shabazz as planned. Maternal Triage Index - Maternal Triage Index Presenting for scheduled procedure w/no complaint: No - Stat/Priority 1 Stat Priority 1: No - Urgent/Priority 2 Urgent Priority 2: No - Prompt/Priority 3 Prompt Priority 3: No - Non-Urgent/Priority 4 Non-Urgent Priority 4: Yes Criteria Met for Priority 4: Contractions since this morning, pain 5/10 Disposition - Disposition OB Disposition: Discharge to home, Written follow up instructions reviewed Discharge Date: 07/03/21 Discharge Time: 19:14 I agree with the RN Medical Screening Exam: Yes Case reviewed; plan agreed upon as documented in EMR&OBIX.: Yes Diagnosis: FALSE LABOR AT OR AFTER 37 COMPLETED WEEKS OF GESTATION
== END 2021-07-03 19:15 | disposition home or self-care (01) ==
LOC: FBPOP 17:53
PROVIDERS: ATTEND Obstetrics & Gynecology
DX: O47.1 False labor at or after 37 completed weeks of gestation (principal); Z3A.38 38 weeks gestation of pregnancy; Z87.891 Personal history of nicotine dependence; Z88.0 Allergy status to penicillin; Z88.1 Allergy status to other antibiotic agents
CPT/HCPCS: 59025; G0463; 99213

== ENCOUNTER 2021-07-04 13:04 | Inpatient (IN) | payer OTHER ==
[2021-07-04] MEDS ORDERED: LIDOCAINE 0.5% (PF) 5 MG/ML (50 ML SDV) SQ PRN (13:57)
[2021-07-04] MEDS ORDERED: OXYTOCIN 10 UNIT/ML 1 ML VIAL IM PRN (13:57)
[2021-07-04] MEDS ORDERED: TERBUTALINE 1 MG/ML VIAL SQ PRN (13:57)
[2021-07-04] MEDS ORDERED: CARBOPROST TROMETHAMINE 250 MCG/ML 1 ML AMP IM PRN (13:57)
[2021-07-04] MEDS ORDERED: METHYLERGONOVINE 0.2 MG/ML 1 ML AMP IM PRN (13:57)
[2021-07-04] MEDS ORDERED: OXYTOCIN 30 UNITS/500 ML NS 30 UNIT in SALINE 1 500ML.BAG IV SCH (14:00)
[2021-07-04] MEDS ORDERED: LACTATED RINGERS 1,000 ML IV SCH (14:00)
[2021-07-04] MEDS ORDERED: CLINDAMYCIN 900 MG in DEXTROSE 5% IN WATER 50 ML IVPB STA ×2 (14:11)
[2021-07-04 14:23] LABS: Basophils % (A) 0 %; Eosinophils # (A) 0.1 k/uL (0-0.7); Eosinophils % (A) 1 %; HCT 37.1 % (34.0-46.0); HGB 12.1 gm/dL (11.4-16.0); Lymphocytes # (A) 1.4 k/uL (1.0-4.8); Lymphocytes % (A) 13 %; MCH 29.6 pg (25.0-35.0); MCHC 32.7 g/dL (31.0-37.0); MCV 90.5 fL (80.0-100.0); Mean Platelet Volume 8.1; Monocytes # (A) 0.5 k/uL (0-1.0); Monocytes % (A) 5 %; Neutrophils # (A) 8.2 k/uL (1.3-7.7); Neutrophils % (A) 79 %; Platelet Count 197 k/uL (150-450); RDW 13.4 % (11.5-15.5); WBC 10.3 k/uL (3.8-10.6)
--- NOTE | 2021-07-04 14:23 | P.HPOB ---
History of Present Illness H&P Date: 07/04/21 Chief Complaint: Contractions. This patient is a 25-year-old 4 para 3 female estimated date of confinement 07/16/2020 estimated gestational age 38-2/7 weeks who presents to labor and delivery with complaints of contractions. Patient was here earlier yesterday similar complaints and was found not be in active labor. She now re- presents as for 4 cms dilated appears to be in active labor. care is per Dr. Shabazz. It is complicated by a lapse in care from approximately 18 to 31 weeks where apparently she was seen maternal medicine but did not see Dr. Shabazz. Patient was referred for an EIF and subsequent cardiac echo showing apical VSD and left sided intracardiac focus. Apparently it has been recommended she can deliver at [facility] and would need a cardiac echo. otherwise appears to be uncomplicated. She did have a positive group B strep culture. Review of Systems Genitourinary: Reports Menstruation: Reports amenorrhea Past Medical History Past Medical History: No Reported History Additional Past Medical History / Comment(s): Childhood asthma; patient has had 3 term spontaneous vaginal deliveries. History of Any Multi-Drug Resistant Organisms: None Reported Past Surgical History: No Surgical Hx Reported Past Anesthesia/Blood Transfusion Reactions: No Reported Reaction Past Psychological History: No Psychological Hx Reported Smoking Status: Never smoker Past Alcohol Use History: None Reported Past Drug Use History: None Reported - Past Family History Father Family Medical History: Hypertension Medications and Allergies Home Medications Medication Instructions Recorded Confirmed Type Multivit No.40/Iron/Folat1/Dha 07/04/21 History [Prenate Essential Softgel] Allergies Allergy/AdvReac Type Severity Reaction Status Date / Time amoxicillin Allergy Swelling Verified 07/04/21 13:37 Penicillins Allergy Swelling Verified 07/04/21 13:37 Exam Intake and Output 07/03/21 07/04/21 07/04/21 22:59 06:59 14:59 Other: Weight 73.028 kg - OBG Physical Exam Abdomen: bowel sounds normal, no diffuse tenderness, no bruit present, no guarding noted, no hepatomegaly, no splenomegaly, no mass Vulva: both: normal Vagina: normal moisture, no discharge Cervix: no lesion (Cervix is 4 cm dilated 50% effaced -2 station vertex.), no discharge Uterus: enlarged Results labs show that she is A positive, rubella immune, RPR nonreactive, hepatitis B negative, hemoglobin was 12.3, group B strep was positive, ultrasounds as above Assessment and Plan Assessment: This is a 25-year-old 4 para 3 female 38-2/7 weeks gestation who is admitted to labor and delivery in active labor. Patient's is complicated by apical VSD which does not appear to be significant enough to require delivery elsewhere. I did notify pattern designer of these findings and to be aware at the time of delivery. Patient also has a positive group B strep therefore be given antibiotic prophylaxis. This point were anticipating a vaginal delivery. (1) 38 weeks gestation of Current Visit: Yes Status: Acute Code(s): Z3A.38 - 38 WEEKS GESTATION OF SNOMED Code(s): 92871712 (2) Normal labor Current Visit: Yes Status: Acute Code(s): O80 - ENCOUNTER FOR FULL-TERM UNCOMPLICATED DELIVERY; Z37.9 - OUTCOME OF DELIVERY, UNSPECIFIED SNOMED Code(s): 99348309 (3) ventricular septal defect in , antepartum, single gestation Current Visit: Yes Status: Acute Code(s): O35.8XX0 - MATERNAL CARE FOR OTH ABNORMALITY AND DAMAGE, UNSP SNOMED Code(s): 279731649 (4) Group B streptococcal carriage complicating Current Visit: Yes Status: Acute Code(s): O99.820 - STREPTOCOCCUS B CARRIER STATE COMPLICATING SNOMED Code(s): 212152588665353
[2021-07-04] MEDS: OXYTOCIN 30 UNITS/500 ML NS 30 UNIT in SALINE 1 500ML.BAG IV SCH ×2 (15:00→19:28)
--- NOTE | 2021-07-04 15:09 | P.PROBDLV ---
Vaginal Delivery Note - . Vaginal Delivery Note: Normal spontaneous vaginal delivery viable female infant Apgars 9 and 9 at 1452 hrs. Please see dictated H&P for intimate details of this patient's admission. In brief summary this is a 25-year-old 4 para 3 female 38-2/7 weeks gestation admitted to labor and delivery complaining of regular painful contractions. Patient is 4 cm dilated and has antibiotic started for positive strep culture. She has artificial rupture membranes for clear fluid. Labor progresses quite quickly and she gets to complete. She pushes one time pushes the head to the perineum. Posterior perineum is supported we have controlled delivery of the 's head over the intact perineum. head presentation is straight occiput anterior. Mouth and nares are bulb suctioned. There is a nuchal cord which is easily reduced. With gentle downward traction we then have deliver the anterior and posterior shoulder and rest this 's body. This is a vigorous viable female infant Apgars are 9 and 9 delivery time was 1452 hrs. After delivery of the , the infant is laid on the mother's abdomen. After the cord is done pulsating is doubly clamped and then cut. Placenta is then spontaneously delivered intact. Estimated blood loss is approximately 100 mL. There are no lacerations and no repair. and mother are stable in delivery room. We will alert the peds as to the patient's cardiac condition which is previously noted. All counts correct 3. There are no complications.
[2021-07-04] MEDS ORDERED: ZOLPIDEM 5 MG TAB PO PRN (15:10)
[2021-07-04] MEDS ORDERED: diphenhydrAMINE 50 MG/ML 1 ML VIAL IVP PRN (15:10)
[2021-07-04] MEDS ORDERED: LANOLIN CREAM 5 GM TUBE TOPICAL PRN (15:10)
[2021-07-04] MEDS ORDERED: BENZOCAINE/MENTHOL SPRAY 1 GM/SPRAY AEROSOL TOPICAL PRN (15:10)
[2021-07-04] MEDS ORDERED: SIMETHICONE 80 MG CHEWABLE PO PRN (15:10)
[2021-07-04] MEDS ORDERED: diphenhydrAMINE 25 MG CAP PO PRN (15:10)
[2021-07-04] MEDS ORDERED: bisacodyL 10 MG SUPP RECTAL PRN (15:10)
[2021-07-04] MEDS ORDERED: SENNOSIDES-DOCUSATE SODIUM 1 EACH TAB PO PRN (15:10)
[2021-07-04] MEDS ORDERED: HYDROCORTISONE 2.5% RECTAL CREAM 30 GM TUBE RECTAL PRN (15:10)
[2021-07-04] MEDS ORDERED: ACETAMINOPHEN TAB 325 MG TAB PO PRN (15:10)
[2021-07-04] MEDS: IBUPROFEN 600 MG TAB PO PRN (21:41)
[2021-07-04] MEDS ORDERED: CLINDAMYCIN 900 MG in DEXTROSE 5% IN WATER 50 ML IVPB SCH ×2 (22:00)
--- NOTE | 2021-07-05 06:12 | P.PNOBGVD ---
Subjective - Subjective Patient reports: Reports appetite normal, Reports voiding normally, Reports pain well controlled, Reports ambulating normally : doing well Objective - Latest Vital Signs Latest vital signs: Vital Signs Temp Pulse Resp BP Pulse Ox 07/05/21 00:00 98.2 F 75 18 108/65 98 07/04/21 20:00 98.4 F 125 H 32 H 07/04/21 17:12 97.8 F 90 18 111/63 07/04/21 16:42 105 H 18 106/70 07/04/21 16:12 83 18 107/67 07/04/21 15:57 97.8 F 84 18 106/60 07/04/21 15:42 97.6 F 80 18 116/66 99 07/04/21 15:27 98.0 F 79 18 110/68 100 07/04/21 15:12 97.9 F 84 18 118/63 98 07/04/21 14:06 98.2 F 95 18 136/64 99 Intake and Output 07/04/21 07/04/21 07/05/21 14:59 22:59 06:59 Intake Total 500 Output Total 350 Balance 150 Intake: Intake, IV Titration 500 Amount Oxytocin 30 Units/500 ml 500 Ns 30 unit In Saline 1 500ml.bag @ Per Protocol IV .Q0M [facility] Rx#:[id number] Output: Estimated Blood Loss 350 Other: # Voids 1 2 Weight 73.028 kg - Exam Lungs: bilateral: normal Chest: Normal S1, Normal S2 Extremities: Present: normal Abdomen: Present: normal appearance, soft Uterus: Present: normal, firm - Labs Labs: Abnormal Lab Results - Last 24 Hours (Table) 07/04/21 Range/Units 14:02 Neutrophils # 8.2 H (1.3-7.7) k/uL Assessment and Plan Assessment: day #1. Patient is resting without new complaints. Patient's baby was transferred to special care nursery for IV antibiotics due to positive CBC. Baby is doing well but does require to be in special care due to the IV antibiotics. Vital signs are stable she is afebrile. Uterus is firm nontender and she is having normal lochia. My impression this is a normal course. Plan is to continue routine care discharge home tomorrow. (1) 38 weeks gestation of Current Visit: Yes Status: Acute Code(s): Z3A.38 - 38 WEEKS GESTATION OF SNOMED Code(s): 96579672 (2) Normal labor Current Visit: Yes Status: Acute Code(s): O80 - ENCOUNTER FOR FULL-TERM UNCOMPLICATED DELIVERY; Z37.9 - OUTCOME OF DELIVERY, UNSPECIFIED SNOMED Code(s): 96541640 (3) ventricular septal defect in , antepartum, single gestation Current Visit: Yes Status: Acute Code(s): O35.8XX0 - MATERNAL CARE FOR OTH ABNORMALITY AND DAMAGE, UNSP SNOMED Code(s): 341644821 (4) Group B streptococcal carriage complicating Current Visit: Yes Status: Acute Code(s): O99.820 - STREPTOCOCCUS B CARRIER STATE COMPLICATING SNOMED Code(s): 835705862322992
[2021-07-05] MEDS: IBUPROFEN 600 MG TAB PO PRN (21:05)
[2021-07-06] MEDS: IBUPROFEN 600 MG TAB PO PRN ×3 (02:50→17:55)
--- NOTE | 2021-07-06 07:16 | P.PNOBGVD ---
Subjective - Subjective Patient reports: Reports appetite normal, Reports voiding normally, Reports pain well controlled, Reports ambulating normally : doing well Objective - Latest Vital Signs Latest vital signs: Vital Signs Temp Pulse Resp BP Pulse Ox 07/05/21 23:57 97.8 F 91 16 116/78 07/05/21 16:00 98.4 F 83 18 112/69 98 07/05/21 08:00 97.9 F 91 18 107/76 99 - Exam Lungs: bilateral: normal Chest: Normal S1, Normal S2 Extremities: Present: normal Abdomen: Present: normal appearance, soft Uterus: Present: normal, firm Assessment and Plan Assessment: day #2. Patient is resting without new complaints. Vital signs are stable and she is afebrile. Uterus is firm nontender and she is having normal lochia. Plan today is to continue routine care discharge home later. (1) 38 weeks gestation of Current Visit: Yes Status: Acute Code(s): Z3A.38 - 38 WEEKS GESTATION OF SNOMED Code(s): 44454096 (2) Normal labor Current Visit: Yes Status: Acute Code(s): O80 - ENCOUNTER FOR FULL-TERM UNCOMPLICATED DELIVERY; Z37.9 - OUTCOME OF DELIVERY, UNSPECIFIED SNOMED Code(s): 65789566 (3) ventricular septal defect in , antepartum, single gestation Current Visit: Yes Status: Acute Code(s): O35.8XX0 - MATERNAL CARE FOR OTH ABNORMALITY AND DAMAGE, UNSP SNOMED Code(s): 811853610 (4) Group B streptococcal carriage complicating Current Visit: Yes Status: Acute Code(s): O99.820 - STREPTOCOCCUS B CARRIER STATE COMPLICATING SNOMED Code(s): 833361542105108
--- NOTE | 2021-07-06 07:25 | P.DS ---
Providers Date of admission: 07/04/21 13:53 Expected date of discharge: 07/06/21 Attending physician: Mala Shabazz Primary care physician: Stated None - Discharge Diagnosis(es) (1) 38 weeks gestation of Current Visit: Yes Status: Acute (2) Normal labor Current Visit: Yes Status: Acute (3) ventricular septal defect in , antepartum, single gestation Current Visit: Yes Status: Acute (4) Group B streptococcal carriage complicating Current Visit: Yes Status: Acute Hospital Course: Please see dictated H&P for intimate details of this patient's admission. Brief summary is a pleasant 25-year-old 4 para 3 female admitted to labor and delivery in active labor. Patient's admitting quickly goes on have a vaginal delivery viable female infant. Please see dictated delivery note. day #2 patient's felt be stable for discharge home follow up with Dr. Shabazz in 6 weeks. Procedures: Normal spontaneous vaginal delivery Patient Condition at Discharge: Good Plan - Discharge Summary New Discharge Prescriptions: New Ibuprofen [Motrin] 600 mg PO Q6HR PRN #30 tab PRN Reason: Pain No Action Multivit No.40/Iron/Folat1/Dha [Prenate Essential Softgel] Discharge Medication List Multivit No.40/Iron/Folat1/Dha [Prenate Essential Softgel] 07/04/21 [History] Ibuprofen [Motrin] 600 mg PO Q6HR PRN #30 tab 07/06/21 [Rx] Follow up Appointment(s)/Referral(s): Mala Shabazz DO [Doctor of Osteopathic Medicine] - 6 Weeks Patient Instructions/Handouts: Vaginal Delivery (DC) Activity/Diet/Wound Care/Special Instructions: No intercourse or anything per vagina for 6 weeks. Please call if any fever, chills, excessive vaginal bleeding, and/or abdominal pain. Discharge Disposition: HOME SELF-CARE
[2021-07-06 17:08] VITALS: BP 112/70; PULSE 82; RESP 18; TEMP 97.9
== END 2021-07-06 18:30 | disposition home or self-care (01) | DRG 807 ==
LOC: FBPOP 13:04 → 4FBP 13:53
PROVIDERS: ADMIT Obstetrics & Gynecology; ATTEND Obstetrics & Gynecology
PROC: 10E0XZZ Delivery of Products of Conception, External Approach (ICD-10-PCS; principal; 2021-07-04)
PROC: 10907ZC Drainage of Amniotic Fluid, Therapeutic from Products of Conception, Via Natural or Artificial Opening (ICD-10-PCS; 2021-07-04)
DX: O35.8XX0 Maternal care for other (suspected) fetal abnormality and damage, not applicable or unspecified (principal); Z37.0 Single live birth; O99.824 Streptococcus B carrier state complicating childbirth; O69.81X0 Labor and delivery complicated by cord around neck, without compression, not applicable or unspecified; Z3A.38 38 weeks gestation of pregnancy; Z88.1 Allergy status to other antibiotic agents; Z88.0 Allergy status to penicillin
CPT/HCPCS: 59025; 85025; 86850; 86900; 86901; 88307; 99213